=== PATIENT | female | born 1970 | race Caucasian/White ===

== ENCOUNTER 2016-08-11 10:49 | Emergency (ER) | payer OTHER ==
[2016-08-11 11:54] VITALS: BP 121/85
--- NOTE | 2016-08-11 12:14 | UC ---
Respiratory Complaint HPI - HPI Summary HPI Summary: 46 yo female with a 2 week hx of sinus pressure and pain upper teeth and gums sore no f/c hx frequent sinusitis had sinus surgery which resulted in a septal perforation headache - History of Current Complaint Chief Complaint: UCGeneralIllness Stated Complaint: SINUS PAIN Time Seen by Provider: 08/11/16 12:08 Hx Obtained From: Patient Hx Last Menstrual Period: pt does not remember Onset/Duration: Gradual Onset, Lasting Weeks Timing: Constant Severity Initially: Moderate Severity Currently: Moderate Pain Intensity: 4 Pain Scale Used: 0-10 Numeric Character: Cough: Nonproductive Aggravating Factors: Nothing Alleviating Factors: Nothing Associated Signs And Symptoms: Positive: Nasal Congestion, Sinus Discomfort - Allergies/Home Medications Allergies/Adverse Reactions: Allergies Allergy/AdvReac Type Severity Reaction Status Date / Time Ondansetron [From Zofran] Allergy MENTAL Verified 08/11/16 11:42 CHANGES , ITCHING Doxycycline AdvReac Diarrhea Verified 08/11/16 11:42 Fluoxetine [From Prozac] AdvReac SEVERE Verified 08/11/16 11:42 HEADACHE Paroxetine [From Paxil] AdvReac Headache Verified 08/11/16 11:42 PMH/Surg Hx/FS Hx/Imm Hx Previously Healthy: Yes Neurological History Of: Reports: Seizures - 2 SEIZURES 1990 AND 2003 FROM BCP? ON MEDS, Migraine - RARE Psychological History Of: Reports: Anxiety - NO MEDS, Depression - NO MEDS Cancer History Of: Denies: Breast Cancer - Surgical History Surgical History: Yes Surgery Procedure, Year, and Place: TUBAL LIGATION, 2009, [facility]. 2009, TARSAL TUNNEL, [facility] [place], LEFT FOOT; septum deviation repair - 2013 - Family History Known Family History: Positive: Cardiac Disease, Hypertension, Diabetes - Social History Alcohol Use: Occasionally Substance Use Type: None Smoking Status (MU): Never Smoked Tobacco - Immunization History Most Recent Influenza Vaccination: never, pt states has reaction at site. Review of Systems Constitutional: Negative Skin: Negative Eyes: Negative ENT: Nasal Discharge Respiratory: Cough Cardiovascular: Negative Gastrointestinal: Negative Genitourinary: Negative Motor: Negative Neurovascular: Negative Musculoskeletal: Negative Neurological: Negative Psychological: Negative All Other Systems Reviewed And Are Negative: Yes Physical Exam Triage Information Reviewed: Yes Appearance: Well-Appearing, No Pain Distress, Well-Nourished Vital Signs: Initial Vital Signs Temp 98.6 F 08/11/16 11:44 Pulse 103 08/11/16 11:44 Resp 18 08/11/16 11:44 BP 121/85 08/11/16 11:44 Pulse Ox 99 08/11/16 11:44 Vital Signs Reviewed: Yes Eyes: Positive: Conjunctiva Clear ENT: Positive: Hearing grossly normal, Nasal congestion, Nasal drainage, Other: . Negative: Trismus, Muffled/hoarse voice - bilat max sinus tenderness Dental Exam: Normal Neck: Positive: Nontender, Enlarged Nodes @ - ant cervical Respiratory: Positive: Lungs clear, Normal breath sounds, No respiratory distress Cardiovascular: Positive: RRR, No Murmur Musculoskeletal: Positive: ROM Intact, No Edema Neurological Exam: Normal Psychological Exam: Normal Skin Exam: Normal UC Diagnostic Evaluation - Laboratory O2 Sat by Pulse Oximetry: 99 - normal/not hypoxic Respiratory Course/Dx - Differential Dx/Diagnosis Provider Diagnoses: acute sinusitis Discharge - Discharge Plan Condition: Stable Disposition: HOME Prescriptions: Clarithromycin TAB* [Biaxin 500 MG TAB*] 500 mg PO BID #20 tab Fluconazole 150 MG (NF) [Diflucan 150 mg (NF)] 150 mg PO WEEKLY PRN #3 tab PRN Reason: Itching Patient Education Materials: Sinusitis (ED) Referrals: Gisel Young, ELECTRIC MULE DRIVER [Primary Care Provider] - 5 Days (if not better)
== END 2016-08-11 12:22 | disposition home or self-care (01) ==
LOC: UCEAST 10:49
DX: J01.90 Acute sinusitis, unspecified (principal); R56.9 Unspecified convulsions; F41.9 Anxiety disorder, unspecified; Z88.3 Allergy status to other anti-infective agents
CPT/HCPCS: 99212; G0463

== ENCOUNTER 2016-09-18 15:11 | Emergency (ER) | payer OTHER ==
[2016-09-18 15:22] VITALS: BP 122/65
--- NOTE | 2016-09-18 16:16 | UC ---
Upper Extremity HPI - HPI Summary HPI Summary: 46 y/o female presents to the urgent care c/o of left hand pain s/p fall 10 days ago while walking her dog. Pt states she didn't seek health care, she just wrapped her hand with an kb bandage and has been taking ibuprofen to alleviate pain and swelling. However pain persist and she wants to r/o if there is any fracture. Pt states mild tingling sensation radiating to the pinky finger. Pt, denies fever, SOB, chest pain, N/V/D. She has no other complains. - History of Current Complaint Chief Complaint: UCUpperExtremity Stated Complaint: LEFT WRIST INJURY Time Seen by Provider: 09/18/16 15:54 Hx Obtained From: Patient Hx Last Menstrual Period: 08/07/16 Onset/Duration: Sudden Onset, Lasting Days, Still Present Severity Initially: Moderate Severity Currently: Moderate Pain Intensity: 4 Pain Scale Used: 0-10 Numeric Location Of Pain: Is Discrete @ - LF hand dorsal side Aggravating Factor(s): Movement Alleviating Factor(s): OTC Meds - Ibuprofen prn Associated Signs And Symptoms: Positive: Swelling, Numbness/Tingling - over the left pinky - Risk Factors Non-Orthopedic Risk Factor: Negative DVT Risk Factors: Negative Septic Arthritis Risk Factor: Negative - Allergies/Home Medications Allergies/Adverse Reactions: Allergies Allergy/AdvReac Type Severity Reaction Status Date / Time Ondansetron [From Zofran] Allergy MENTAL Verified 08/11/16 11:42 CHANGES , ITCHING Doxycycline AdvReac Diarrhea Verified 08/11/16 11:42 Fluoxetine [From Prozac] AdvReac SEVERE Verified 08/11/16 11:42 HEADACHE Paroxetine [From Paxil] AdvReac Headache Verified 08/11/16 11:42 PMH/Surg Hx/FS Hx/Imm Hx Previously Healthy: Yes Respiratory History: Asthma - Surgical History Surgical History: Yes Surgery Procedure, Year, and Place: TUBAL LIGATION, 2009, [facility]. 2009, [place]EL, [facility] [place], LEFT FOOT; septum deviation repair - 2013 and 08/2016 - Family History Known Family History: Positive: Cardiac Disease, Hypertension, Diabetes - Social History Occupation: Employed Full-time Lives: With Family Alcohol Use: Occasionally Substance Use Type: None Smoking Status (MU): Never Smoked Tobacco - Immunization History Most Recent Influenza Vaccination: never, pt states has reaction at site. Review of Systems Constitutional: Negative Skin: Negative Eyes: Negative ENT: Negative Respiratory: Negative Cardiovascular: Negative Gastrointestinal: Negative Genitourinary: Negative Motor: Negative Neurovascular: Negative Musculoskeletal: Other: - LF hand pain s/o fall 10 days ago with swelling and bruising Neurological: Negative Psychological: Negative All Other Systems Reviewed And Are Negative: Yes Physical Exam Triage Information Reviewed: Yes Appearance: Well-Appearing, No Pain Distress, Well-Nourished, Obese Vital Signs: Initial Vital Signs Temp 97.8 F 09/18/16 15:19 Pulse 105 09/18/16 15:19 Resp 16 09/18/16 15:19 BP 122/65 09/18/16 15:19 Pulse Ox 99 09/18/16 15:19 Vital Signs Reviewed: Yes Eye Exam: Normal Eyes: Positive: Conjunctiva Clear - PERRLA, EOMI, fusdus grossly intact ENT Exam: Normal ENT: Positive: Normal ENT inspection, Hearing grossly normal, Pharynx normal, TMs normal Dental Exam: Normal Neck exam: Normal Neck: Positive: Supple, Nontender, No Lymphadenopathy Respiratory Exam: Normal Respiratory: Positive: Chest non-tender, Lungs clear, Normal breath sounds, No respiratory distress Cardiovascular Exam: Normal Cardiovascular: Positive: RRR, No Murmur, Pulses Normal Abdominal Exam: Normal Abdomen Description: Positive: Nontender, No Organomegaly, Soft. Negative: CVA Tenderness (R), CVA Tenderness (L) Bowel Sounds: Positive: Present Musculoskeletal Exam: Normal Musculoskeletal: Positive: Other: - Left hand with swelling and bluish discolration with tenderness on palpation over the dorsal side of hand. FROM. Positive pulses, sensation, capillary refill, good strength. Neurological Exam: Normal Neurological: Positive: Alert, Muscle Tone Normal Psychological Exam: Normal Skin Exam: Normal Upper Extremity Course/Dx - Course Course Of Treatment: LF hand pain s/p fall x 10 days: Hx obtained. PE abnormal findings:Musculoskeletal: Positive: Other: - Left hand with swelling and bluish discoloration with tenderness on palpation over the dorsal side of hand. FROM. Positive pulses, sensation, capillary refill, good strength. LF hand x-ray 3 views ordered to r/o fracture. Result:no evidence for fracture. Pt given a wrist inbomilizer and Rx Ibuprofen 800mg PO q6hrs prn to alleviate symptoms and advised if symptoms do not improve to f/u with PCP or return to the urgent care for further evaluation and treatment. Pt understood and agreed. - Differential Dx/Diagnosis Differential Diagnosis/HQI/PQRI: Contusion, Fracture (Closed), Strain, Sprain Provider Diagnoses: Left hand pain Discharge - Discharge Plan Condition: Stable Disposition: HOME Prescriptions: Ibuprofen TAB* [Motrin TAB* 800 MG] 800 mg PO Q6H #20 tab Patient Education Materials: Hand Sprain (ED) Referrals: Gisel Young WARNING COORDINATION METEOROLOGIST [Primary Care Provider] - 1 Week Additional Instructions: Please take Ibuprofen 800mg PO after meals and RICE. Use wrist immobilizer as instructed, avoid heavy lifting. If symptoms do not improved please return to the urgent care or f/u with your PCP for further management.
--- NOTE | 2016-09-18 16:37 | RAD ---
INDICATION: Left hand injury. TECHNIQUE: 4 views of the left hand were obtained. FINDINGS: The bones are in normal alignment. No fracture is seen. Joint spaces appear maintained. IMPRESSION: NO EVIDENCE FOR FRACTURE.
== END 2016-09-18 17:05 | disposition home or self-care (01) ==
LOC: UCEAST 15:11
DX: M79.642 Pain in left hand (principal); W19.XXXA Unspecified fall, initial encounter; Y93.K1 Activity, walking an animal; Y92.9 Unspecified place or not applicable
CPT/HCPCS: 99212; G0463